=== PATIENT | female | born 1990 | race Caucasian/White ===

== ENCOUNTER → 2018-12-18 07:29 | Outpatient (CLI) | payer OTHER, SELFPAY ==
[2018-12-18 08:26] LABS: Appearance Urine UA CLEAR; Bilirubin Urine UA NEGATIVE (NEGATIVE); Color Urine UA YELLOW; Glucose Urine UA NEGATIVE (Negative); Ketones Urine UA TRACE (NEGATIVE); Leukocyte Esterase Urine UA NEGATIVE (NEGATIVE); Nitrite Urine UA NEGATIVE (Negative); Occult Blood Urine UA TRACE-LYSED (Negative); Protein Urine UA NEGATIVE (Negative); Specific Gravity Urine UA 1.025 (1.000-1.035); Urobilinogen Urine UA 0.2 E.U./dL (0.2); pH Urine UA 5.5 (4.5-8.0)
[2018-12-18 09:00] LABS: Hematocrit 39.4 % (36-46); Hemoglobin 13.3 g/dL (12.0-16.0); Mean Corpuscular HGB Conc 33.7 % (30-36); Mean Corpuscular Hemoglobin 26.8 PG (26-34); Mean Corpuscular Volume 79.5 fL (80-100); Platelet Count 325 X10^3/uL (150-400); Red Blood Cell Count 4.95 X10^6/uL (4.0-5.2); Red Cell Distribution Width 13.9 % (11.6-14.8); White Blood Cell Count 10.1 X10^3/uL (4.5-11.0)
--- NOTE | 2018-12-18 09:11 | DI.RAD.S_ITS ---
PROCEDURE: XR SHOULDER RT MIN 2V INDICATIONS: R shoulder pain TECHNIQUE: 3 views of the shoulder were acquired. COMPARISON: None. FINDINGS: Bones: No fractures or dislocations. No suspicious bony lesions. Visualized ribs appear intact. Soft tissues: No suspicious soft tissue calcifications. IMPRESSION: No acute osseous abnormality of the right shoulder. Dictated by: Jenaro Patel M.D. on 12/18/2018 at 10:30 Approved by: Jenaro Patel M.D. on 12/18/2018 at 10:31
[2018-12-18 09:15] LABS: Alanine Aminotransferase 22 IU/L (9-52); Albumin 4.1 g/dL (3.5-5.0); Albumin Globulin Ratio 1.4 (1.0-2.8); Alkaline Phosphatase 97 U/L (38-126); Aspartate Aminotransferase 21 IU/L (14-36); BUN Creatinine Ratio 14.4 (6-22); Bilirubin Total 0.3 mg/dL (0.2-1.3); Blood Urea Nitrogen 13 mg/dL (7-17); Calcium 9.5 mg/dL (8.4-10.2); Carbon Dioxide 25 mmol/L (22-32); Chloride 103 mmol/L (98-107); Cholesterol 219 mg/dL (140-199); Estimated Glomerular Filt Rate > 60.0 mL/min (>60); Glucose 102 mg/dL (70-100); HDL Cholesterol 36 mg/dL (40-60); HEMOLYSIS < 15 (0-50); LDL Cholesterol Calculated 166 mg/dL (<100); Potassium 4.1 mmol/L (3.4-5.1); Sodium 138 mmol/L (137-145); Total Protein 7.1 g/dL (6.3-8.2); Triglycerides 87 mg/dL (35-150)
[2018-12-18 09:35] LABS: Neutrophils Absolute Manual 5555 /uL (3000-5900); Total Cells Counted 100
[2018-12-18 10:25] LABS: Erythrocyte Sedimentation Rate 20 MM/HR (0-20)
== END ==
PROVIDERS: Visit Provider Family Medicine
DX: Z13.220 Encounter for screening for lipoid disorders (principal); Z13.29 Encounter for screening for other suspected endocrine disorder; Z30.09 Encounter for other general counseling and advice on contraception; M25.511 Pain in right shoulder
CPT/HCPCS: 36415; 73030; 80053; 80061; 81003; 84443; 85025; 85651; 86038

== ENCOUNTER → 2020-07-25 12:46 | Outpatient (CLI) | payer OTHER, SELFPAY ==
--- NOTE | 2020-07-25 12:47 | DI.US.S_ITS ---
ULTRASOUND OF RIGHT BREAST: 07/25/2020 CLINICAL: Palpable right breast lump. No prior exams were available for comparison. Color flow ultrasound of the right breast was performed. Arellano scale images of the real-time examination were reviewed. There is a possible 1.4 cm x 1.1 cm x 1.5 cm oval hypervasular mass vs. part of inverted nipple in the right breast central to the nipple posterior depth. which can not be further deliniated with ultrasound. Color flow imaging demonstrates that there is increased vascularity. IMPRESSION: INCOMPLETE: NEEDS ADDITIONAL IMAGING EVALUATION The possible 1.4 cm x 1.1 cm x 1.5 cm oval mass in the right breast is indeterminate. A mammogram and MRI is recommended to further evaluate. This exam was interpreted at Station ID: [id number]. Electronically Signed By: Festus Bush acr/:07/25/2020 13:54:25 letter sent: Additional Imaging Needed Ultrasound BI-RADS: 0 Indeterminate
== END ==
PROVIDERS: PCP Family Medicine; Referring Provider Family Medicine; Visit Provider Family Medicine
DX: R92.8 Other abnormal and inconclusive findings on diagnostic imaging of breast (principal); N63.10 Unspecified lump in the right breast, unspecified quadrant
CPT/HCPCS: 76642

== ENCOUNTER → 2020-08-14 12:40 | Outpatient (CLI) | payer OTHER, SELFPAY ==
--- NOTE | 2020-08-14 12:42 | DI.MG.S_ITS ---
UNILATERAL RIGHT DIGITAL DIAGNOSTIC MAMMOGRAM 3D/2D: 08/14/2020 CLINICAL: Additional evaluation requested from prior study. Baseline exam. Baseline right breast mammogram. Comparison is made to exam dated: 07/25/2020 [facility]. There are scattered fibroglandular elements in right breast. No retroareolar mass or calcifications are seen. No significant masses, calcifications, or other findings are seen in the breast. IMPRESSION: INCOMPLETE: NEEDS ADDITIONAL IMAGING EVALUATION No mammographic evidence of malignancy. No mass seen in the retroareolar breast at palpable abnormality and site of possible mass seen on ultrasound. The patient reports nipple inversion and denies nipple discharge. Breast MRI was previously recommended. If breast MRI cannot be obtained, a short-term follow-up ultrasound in 1 month is recommended. Ultrasound guided biopsy should be considered if the abnormality persists. Exam findings were discussed with the patient by Dr. Luis Lara over the phone. Patient is advised to monitor for significant change. Clinical follow-up is recommended. This exam was interpreted at Station ID: [id number]. NOTE: For mammograms, a report in lay terms will be sent to the patient. Approximately 15% of breast malignancies will not be visualized mammographically. In the management of a palpable breast mass, a negative mammogram must not discourage biopsy of a clinically suspicious lesion. Electronically Signed By: Luis Lara M.D. [facility]/:08/15/2020 08:55:33 letter sent: Need Ultrasound ACR BI-RADS Category 0: Incomplete [id number]
[2020-08-14 14:25] LABS: Hemoglobin A1C% w Est Avg Glu 5.2 % (4.0-6.0)
[2020-08-14 14:26] LABS: Hematocrit 39.8 % (36-46); Hemoglobin 13.5 g/dL (12.0-16.0); Mean Corpuscular HGB Conc 33.9 % (30-36); Mean Corpuscular Hemoglobin 27.9 PG (26-34); Mean Corpuscular Volume 82.3 fL (80-100); Platelet Count 312 X10^3/uL (150-400); Red Blood Cell Count 4.83 X10^6/uL (4.0-5.2); Red Cell Distribution Width 13.5 % (11.6-14.8); White Blood Cell Count 10.4 X10^3/uL (4.5-11.0)
[2020-08-14 14:30] LABS: Add Manual Diff / Slide Review YES
[2020-08-14 14:57] LABS: Alanine Aminotransferase 14 IU/L (<35); Albumin 4.1 g/dL (3.5-5.0); Albumin Globulin Ratio 1.5 (1.0-2.8); Alkaline Phosphatase 94 U/L (38-126); Aspartate Aminotransferase 19 IU/L (14-36); BUN Creatinine Ratio 12.5 (6-22); Bilirubin Total 0.2 mg/dL (0.2-1.3); Blood Urea Nitrogen 10 mg/dL (7-17); Calcium 9.8 mg/dL (8.4-10.2); Carbon Dioxide 23 mmol/L (22-32); Chloride 105 mmol/L (98-107); Cholesterol 238 mg/dL (140-199); Estimated Glomerular Filt Rate > 60.0 mL/min (>60); Globulin 2.7 g/dL (1.7-4.1); Glucose 98 mg/dL (70-100); HDL Cholesterol 45 mg/dL (40-60); HEMOLYSIS < 15 (0-50); LDL Cholesterol Calculated 177 mg/dL (<100); Sodium 138 mmol/L (137-145); Total Protein 6.8 g/dL (6.3-8.2); Triglycerides 79 mg/dL (35-150)
[2020-08-14 15:34] LABS: Neutrophils Absolute Manual 7176 /uL (3000-5900); RBC Morphology Normal Morphology; Total Cells Counted 100
== END ==
PROVIDERS: PCP Family Medicine; Referring Provider Family Medicine; Visit Provider Family Medicine
DX: R92.8 Other abnormal and inconclusive findings on diagnostic imaging of breast (principal); N63.10 Unspecified lump in the right breast, unspecified quadrant; N92.6 Irregular menstruation, unspecified; Z13.220 Encounter for screening for lipoid disorders; Z13.29 Encounter for screening for other suspected endocrine disorder; Z83.3 Family history of diabetes mellitus
CPT/HCPCS: 36415; 77065; 80053; 80061; 83036; 84443; 85007; 85025; G0279

== ENCOUNTER → 2020-08-31 13:02 | Outpatient (CLI) | payer OTHER, SELFPAY ==
--- NOTE | 2020-08-31 13:03 | DI.MRI.S_ITS ---
BREAST MRI OF BOTH BREASTS: 08/31/2020 CLINICAL: Mass of right breast. TECHNIQUE: The patient was placed prone in a dedicated breast imaging coil. Precontrast axial STIR and 3D FLASH without fat saturation sequences were obtained. Both before and after bolus injection of contrast, sequential 1-minute axial 3D FLASH with fat saturation sequences for 3 time points, with subtraction images and maximum intensity projections (MIP's) generated. Delayed sagittal FLASH images with fat saturation were also obtained. Computer-aided detection, including computer algorithm analysis of MRI image data for lesion detection and characterization, pharmacokinetic analysis, with further physician review for interpretation, was performed. COMPARISON: [facility], , MM DIAGNOSTIC MAMMO UNILAT RT, 08/14/2020, 13:08. [facility], , US BREAST RT LIMITED, 07/25/2020, 13:07. FINDINGS: Image quality: Excellent. There is minimal background parenchymal enhancement. There is scattered fibroglandular breast tissue in the bilateral breast. Right breast: In the subareolar right breast, immediately deep to the right nipple/areola, there is an irregular enhancing mass noted in the lower, inner aspect of the subareolar region which correlates with area of palpable concern as noted by triangle skin marker on recent mammogram. This mass measures approximately 0.7 x 0.8 cm in transverse cross-sectional dimension (axial image 57, series 6) and approximately 0.9 cm in craniocaudal dimension (image 80, series 14). It appears to abut/communicate with a duct leading to the nipple. There is similar appearance of mild nipple inversion. No evidence for surrounding architectural distortion. This mass demonstrates mixed delayed phase enhancement kinetics but contains washout kinetics on delayed enhancement. Otherwise, no other mass, non-mass enhancement or architectural distortion. No suspicious skin enhancement. Left breast: No mass, non-mass enhancement, or architectural distortion. No skin abnormalities. There is minimal nipple inversion similar to the contralateral breast. Otherwise, no suspicious nipple enhancement. Miscellaneous: No axillary or internal mammary chain adenopathy identified on either side. Visualized portions of the upper abdomen and chest appear unremarkable. IMPRESSION: SUSPICIOUS OF MALIGNANCY 1. Irregular 0.9 cm enhancing right subareolar mass noted in the inner, lower quadrant of the subareolar region which correlates with area of palpable concern as noted on prior imaging evaluation, specifically, this appears to correlate with vascular subareolar mass noted on comparison sonogram. This is suspicious for malignancy. Recommend ultrasound-guided biopsy. Otherwise, no other suspicious abnormalities identified in the right breast. 2. Left breast without MRI evidence for malignancy. 3. No axillary or internal mammary chain adenopathy. COMMENT: The imaging literature indicates that a negative contrast breast MRI examination has a high sensitivity and a moderate specificity for detecting and excluding invasive carcinomas to a detection threshold of 3-5 mm; nonetheless, appropriate clinical and mammographic follow-up are recommended. MRI is not sensitive for detecting DCIS (ductal carcinoma in situ) and may not detect large invasive neoplasms that show only minimal enhancement such as mucinous carcinoma. If there are suspicious calcifications or clinically worrisome palpable masses, then biopsy should still be considered. Invasive neoplasms can be hidden by co-existent and benign enhancement caused by mastitis, hormone therapy effects, radiation therapy, , and recent biopsy or surgery. False positive examinations can occur in a number of circumstances, including breasts that have recently been subject to invasive procedures and those that contain atypical ductal hyperplasia, hormonally stimulated glandular tissue, fat necrosis, or radial scars. This exam was interpreted at Station ID: [id number]. Electronically Signed By: Jordan Schmitt M.D. aty/:08/31/2020 19:40:24 letter sent: Biopsy Required ACR BI-RADS Category 4: Suspicious abnormality 3344F
== END ==
PROVIDERS: PCP Family Medicine; Referring Provider Family Medicine; Visit Provider Family Medicine
DX: N63.41 Unspecified lump in right breast, subareolar (principal)
CPT/HCPCS: 77049; A9579

== ENCOUNTER → 2020-10-09 15:26 | Outpatient (CLI) | payer OTHER, SELFPAY ==
[2020-10-09 15:58] LABS: COVID19 -Nasal RAPID Negative (Negative)
== END ==
PROVIDERS: PCP Family Medicine; Visit Provider Specialist
DX: Z20.822 Contact with and (suspected) exposure to COVID-19 (principal)
CPT/HCPCS: 87635; C9803

== ENCOUNTER 2020-10-10 07:30 | Day surgery (SDC) | payer OTHER, SELFPAY ==
[2020-10-05 13:32] VITALS: BMI 39.7
--- NOTE | 2020-10-10 | PATH_ITS ---
[facility] Accession Number: [id number] . 01 Material submitted: . breast - BREAST TISSUE UNDER NIPPLE . 01 Diagnosis: Specimen Breast Tissue Under Nipple, Excision: Benign breast parenchyma with fibrocystic changes, chronic lymphoplasmacytic and histiocytic inflammation. No evidence of atypical duct hyperplasia, in situ or invasive carcinoma. [facility] 10/12/2020 1136 Local . 01 Comment: As part of ongoing quality compliance consultant, this case is also reviewed by Dr. Dale Garzon, who concurs with the given interpretation. . 01 Electronically signed: . Daya Chauhan MD, Pathologist NPI- [id number] . 01 Gross description: . The specimen is received in formalin, labeled breast tissue under nipple, and consists of three hylton-yellow fragments of fibroadipose tissue measuring 4.0 x 2.5 x 2.0 cm in aggregate. The fragments are inked blue and sectioned to reveal hylton-yellow, lobulated cut surfaces. The specimen is entirely submitted in cassettes A1-A4. ([id number]) /[facility] 10/12/2020 0234 Local . 01 Pathologist provided ICD-10: N63.0 . 01 CPT . 272758 Performed at: 01 [facility] [address], [place], [place] [id number] MD Nik Foster MD Phone: [phone]
[2020-10-10 07:54] VITALS: BP 126/82; PULSE 88; RESP 14; TEMP 36.3; O2SAT 99; BMI 39.9
[2020-10-10] MEDS: LACTATED RINGERS 1,000 ML 100 ML IV (08:04)
--- NOTE | 2020-10-10 08:13 | PM.PREOP ---
Pre-operative Note COVID-19 COVID-19 status: Negative Result date/Date tested (Pos, Neg/Pending): 10/09/20 Interval Note History & Physical reviewed/Exam performed by Physician: Yes Changes to H&P: Yes H&P completed within 30 days and has changed as indicated here:: The patient has noted the mass is decreased in size. On physical examination this morning her retraction has resolved. The mass is tiny and immediately under the nipple. I suspect this is benign. Will proceed remove this small mass.
[2020-10-10] MEDS: CLINDAMYCIN 300 MG in DEXTROSE 5 % IN WATER 50 ML 104 ML IV (08:42)
--- NOTE | 2020-10-10 08:52 | SUR.OPER ---
Supine on padded OR bed, head on pillow, arms secured on padded arm boards at <90 degrees abduction, legs uncrossed, safety belt at thigh, tape over blanket over lower legs.
[2020-10-10] MEDS: BUPIVACAINE 0.5% (PF) VIAL 30 ML INJ (09:01)
--- NOTE | 2020-10-10 09:37 | PM.OP.1 ---
Operative Date/Time/Diagnoses Date of procedure: 10/10/20 Time of procedure: 09:37 Pre-op diagnosis: Mass under right nipple with abnormal MRI. Post-op diagnosis: same Procedure & Clinicians Procedure: Excisional biopsy/lumpectomy of area under nipple areolar complex. Same procedure as scheduled: Yes Indications: Mass that had been causing nipple retraction. This was palpable in seen on imaging. As per my discussion with radiologist, Because of its proximity to the skin it was not felt to be amenable to minimally invasive techniques using suction mammotome for biopsy. Patient was brought in for excision. Surgeon: Joseph Olson Click Yes if Unassisted: Yes Anesthesia Type: General Operative Notes Findings: Tissue under the center of the nipple areolar complex was removed. The mass had diminished in size. Closure Type: primary Specimen(s): other (Breast tissue) Prosthetic devices, grafts, tissues, transplants, or devices: None Estimated Blood Loss (mL): 2 Blood products transfused: none Procedure in detail: Patient is placed supine on the operating room table and underwent general LMA anesthesia. She was prepped and draped in the usual fashion. Local anesthetic was infiltrated in a field block fashion to avoid distorting the area of the where the mass was. Curvilinear incision was made under the edge of the nipple-areolar complex and carried down through this at the skin into the fat of the breast. I excised the tissue with the mass had been and anything that felt might be part of that complex. Tissue was sent as specimen. There is almost no blood loss. The subcu was closed with interrupted 3-0 Vicryl. The skin was closed a running 4-0 Vicryl subcuticular stitch and Steri-Strips. Dressing was applied the patient was awakened extubated and taken the recovery room good condition. Complications: none Post-operative Condition: stable Disposition: PACU Plan for aftercare: Follow-up in the office
[2020-10-10 09:46] VITALS: BP 116/57; PULSE 65; RESP 14; O2SAT 100
[2020-10-10 09:51] VITALS: BP 111/69; PULSE 63; RESP 12; TEMP 36.2; O2SAT 100
[2020-10-10 10:00] VITALS: BP 111/69; PULSE 70; RESP 16; TEMP 36.3; O2SAT 99
[2020-10-10 10:12] VITALS: BP 119/71; PULSE 65; RESP 12; TEMP 36.3; O2SAT 94
== END 2020-10-10 10:25 | disposition home or self-care (01) ==
PROVIDERS: PCP Family Medicine; Referring Provider Family Medicine; Visit Provider Specialist
PROC: (CPT 19301; principal; 2020-10-10 08:45)
DX: N63.10 Unspecified lump in the right breast, unspecified quadrant (principal)
CPT/HCPCS: 19301; J1100; J2405; J2704; J3010; S0077